=== PATIENT | female | born 1960 | race Caucasian/White ===

== ENCOUNTER → 2016-12-22 | Outpatient (CLI) | payer MEDICAID ==
--- NOTE | 2016-12-22 10:12 | CT ---
EXAMINATION TYPE: CT Enterography DATE OF EXAM: 12/22/2016 COMPARISON: NONE HISTORY: Blood in stool CT DLP: 1142.3 mGycm CONTRAST: CT scan of the abdomen and pelvis is performed without and with Oral Contrast and with IV Contrast, p atient injected with 100 mL of Omnipaque 350. FINDINGS: LUNG BASES-: No visible nodule. No infiltrate. LIVER/GB: There is evidence of hepatic steatosis. No calcified gallstones. No space occupying hepat ic lesion. Biliary tree is of normal caliber. PANCREAS: No inflammation. No distinct mass. SPLEEN: No splenic enlargement. No lesion seen. ADRENALS: No nodule. No thickening. KIDNEYS/BLADDER: No hydronephrosis. No nephrolithiasis. No disctinct renal mass. Urinary bladder g rossly unremarkable. BOWEL: There is less than ideal distention of distal small bowel loops limiting evaluation. Small bow el overall appears to be of normal caliber without focal wall thickening, extrinsic lesion or intrins ic mass. Mild sigmoid diverticulosis without diverticulitis. There is a normal appendix. GENITAL ORGANS: No gross abnormality. LYMPH NODES: No greater than 1cm abdominal or pelvic lymph nodes are appreciated. AORTA: No significant abnormality. OSSEOUS STRUCTURES: Mild degenerative narrowing L5-S1. OTHER: No significant additional abnormality is seen. IMPRESSION: 1. No significant abnormality of the small bowel to account for the patient's symptoms as noted porti ons of the study are suboptimal less than ideal distention particularly of the distal small bowel lo ops. 2. Mild sigmoid diverticulosis without diverticulitis. 3. Hepatic steatosis.
== END | disposition home or self-care (01) ==
LOC: RADCTMAIN 07:01
PROVIDERS: ATTEND Surgery
DX: K57.30 Diverticulosis of large intestine without perforation or abscess without bleeding (principal); K76.0 Fatty (change of) liver, not elsewhere classified
CPT/HCPCS: 74177; Q9967

== ENCOUNTER → 2017-05-05 | Outpatient (CLI) | payer MEDICAID ==
--- NOTE | 2017-05-05 12:18 | XR ---
EXAMINATION TYPE: XR wrist complete RT DATE OF EXAM: 05/05/2017 COMPARISON: NONE HISTORY: Pain and swelling TECHNIQUE: Four views submitted. FINDINGS: The osseous structures are intact. Mild narrowing of the radiocarpal joint. Mild osteopenic change. A nd there is no acute fracture or dislocation. There is diffuse soft tissue edema. IMPRESSION: 1. No acute osseous abnormality. There is diffuse soft tissue edema. Consider MRI or ultrasound for f urther evaluation.
== END | disposition home or self-care (01) ==
LOC: RADXRMAIN 11:22
PROVIDERS: ATTEND Radiology Diagnostic Radiology
DX: M79.89 Other specified soft tissue disorders (principal)

== ENCOUNTER → 2017-05-07 | Outpatient (CLI) | payer MEDICAID ==
--- NOTE | 2017-05-07 11:52 | MR ---
Right wrist MRI HISTORY: Pain and swelling Exam correlated to plain film 05/05/2017 multiplanar multisequence imaging through the right wrist The abductor pollicis longus tendon and extensor pollicis brevis tendon show abnormal increased signa l within the substance, there is some surrounding fluid, soft tissue edema. At the volar aspect of th e wrist at the level of the radiocarpal joint there is a cluster of grapes fluid signal present exten ding transversely approximately 13 mm x 5 mm in AP dimension by 18 mm craniocaudal which may represen t an adjacent ganglion cyst. Lunotriquetral, scapholunate, triangular fibrocartilage are intact. Bone marrow signal is maintained. Small amount of fluid signal is present distal to the ulna. IMPRESSION: Findings compatible with possible partial tears, tendinopathy of the abductor pollicis lo ngus and extensor pollicis brevis tendons. There may be a small ganglion cyst as described.
== END | disposition home or self-care (01) ==
LOC: RADMRIMAIN 09:16
PROVIDERS: ATTEND Radiology Diagnostic Radiology
DX: M77.8 Other enthesopathies, not elsewhere classified (principal)

== ENCOUNTER → 2018-04-22 | Outpatient (CLI) | payer MEDICAID ==
--- NOTE | 2018-04-23 11:15 | MM ---
Reason for exam: screening (asymptomatic). Last mammogram was performed 1 year and 3 months ago. History: Patient is postmenopausal. Physical Findings: A clinical breast exam by your physician is recommended on an annual basis and results should be correlated with mammographic findings. MG 3D Screening Mammo W/Cad Bilateral CC and MLO view(s) were taken. Prior study comparison: January 20, 2017, bilateral MG 3d screening mammo w/cad. April 09, 2015, bilateral MG 3d screening mammo w/cad. The breast tissue is heterogeneously dense. This may lower the sensitivity of mammography. No suspicious abnormality. No significant changes when compared with prior studies. ASSESSMENT: Negative, BI-RAD 1 RECOMMENDATION: Routine screening mammogram of both breasts in 1 year.
== END | disposition home or self-care (01) ==
LOC: RADMAMWWP 13:12
PROVIDERS: ATTEND Obstetrics & Gynecology Obstetrics
DX: Z12.31 Encounter for screening mammogram for malignant neoplasm of breast (principal)
CPT/HCPCS: 77063; 77067

== ENCOUNTER → 2019-09-12 | Outpatient (CLI) | payer MEDICAID ==
--- NOTE | 2019-09-12 08:10 | US ---
EXAMINATION TYPE: US pelvic complete DATE OF EXAM: 09/12/2019 COMPARISON: NONE CLINICAL HISTORY: N95.0 Postmenopausal bleeding. cramping with brown discharge 1 day 2-3 months ago, h/o unilateral oophorectomy, but pt does not remember which side TECHNIQUE: TV. Transvaginal sonographic images Date of LMP: 12+ yrs ago EXAM MEASUREMENTS: Uterus: 5.5 x 2.7 x 2.6 cm Endometrial Stripe: 0.2 cm Right Ovary: not seen Left Ovary: not seen 1. Uterus: Anteverted flexed to the right, wnl 2. Endometrium: wnl 3. Right Ovary: not seen due to bowel gas, atrophy or surgical removal 4. Left Ovary: not seen due to bowel gas, atrophy or surgical removal 5. Bilateral Adnexa: wnl 6. Posterior cul-de-sac: wnl Heterogeneous uterus without suspicious endometrial thickening. No free fluid in pelvis. No concernin g adnexal masses. IMPRESSION: Unremarkable study.
== END | disposition home or self-care (01) ==
LOC: RADUSWWP 07:01
DX: N95.0 Postmenopausal bleeding (principal)
CPT/HCPCS: 76830

== ENCOUNTER → 2020-02-29 | Outpatient (CLI) | payer MEDICAID ==
[2020-02-29 07:54] LABS: Basophils % (A) 1 %; Eosinophils # (A) 0.1 k/uL (0-0.7); Eosinophils % (A) 2 %; HCT 40.2 % (34.0-46.0); HGB 14.2 gm/dL (11.4-16.0); Lymphocytes % (A) 36 %; MCHC 35.3 g/dL (31.0-37.0); MCV 87.6 fL (80.0-100.0); Mean Platelet Volume 7.3; Monocytes # (A) 0.3 k/uL (0-1.0); Monocytes % (A) 5 %; Neutrophils % (A) 55 %; Platelet Count 208 k/uL (150-450); RBC 4.58 m/uL (3.80-5.40); RDW 13.2 % (11.5-15.5); WBC 5.5 k/uL (3.8-10.6)
[2020-02-29 14:37] LABS: African American GFR (CKD) 82.3 (60.0-200.0); Albumin 4.9 g/dL (3.80-4.90); Albumin/Globulin Ratio 2.23 (1.60-3.17); Anion Gap 11.9 mmol/L (4.00-12.00); BUN/Creat Ratio 15.56 Ratio (12.00-20.00); Calcium 10.1 mg/dL (8.7-10.3); Carbon Dioxide 28.1 mmol/L (21.6-31.8); Chol/HDL Ratio 5.15; Globulin 2.2 g/dL (1.6-3.3); LDL Cholesterol,Calculated 176.2 mg/dL (0.0-131.0); Potassium 4.8 mmol/L (3.5-5.5); Total Bilirubin 0.6 mg/dL (0.3-1.2); Total Protein 7.1 g/dL (6.2-8.2); VLDL Calculation 43.8 mg/dL (5.00-40.00)
[2020-02-29 16:39] LABS: Hemoglobin A1C 6.2 % (4.0-6.0)
== END | disposition home or self-care (01) ==
LOC: LABWHC1 07:13
PROVIDERS: ATTEND Family Medicine
DX: Z00.01 Encounter for general adult medical examination with abnormal findings (principal); E55.9 Vitamin D deficiency, unspecified; Z13.1 Encounter for screening for diabetes mellitus
CPT/HCPCS: 36415; 80053; 80061; 82306; 83036; 84443; 85025

== ENCOUNTER → 2020-07-13 | Outpatient (CLI) | payer MEDICAID ==
[2020-07-13 12:24] LABS: Basophils # (A) 0.03 X 10*3/uL (0.00-0.10); Basophils % (A) 0.5 %; Eosinophils # (A) 0.08 X 10*3/uL (0.04-0.35); Eosinophils % (A) 1.3 %; HCT 39.3 % (37.2-46.3); HGB 13.1 g/dL (12.0-15.0); Lymphocytes # (A) 2.71 X 10*3/uL (0.90-5.00); MCH 29.9 pg (27.0-32.0); MCHC 33.3 g/dL (32.0-37.0); MCV 89.7 fL (80.0-97.0); Mean Platelet Volume 10.9 fL (9.5-12.2); Monocytes # (A) 0.44 X 10*3/uL (0.20-1.00); Monocytes % (A) 7.1 %; Neutrophils # (A) 2.87 X 10*3/uL (1.80-7.70); Neutrophils % (A) 46.6 %; Platelet Count 228 X 10*3/uL (140-440); RBC 4.38 X 10*6/uL (4.10-5.20); RDW 12.4 % (11.5-14.5); WBC 6.16 X 10*3/uL (4.50-10.00)
[2020-07-14 04:13] LABS: African American GFR (CKD) 71.9 (60.0-200.0); Albumin 4.7 g/dL (3.80-4.90); Albumin/Globulin Ratio 1.88 (1.60-3.17); Anion Gap 12.9 mmol/L (4.00-12.00); Calcium 10.1 mg/dL (8.7-10.3); Carbon Dioxide 24.1 mmol/L (21.6-31.8); Chol/HDL Ratio 5.08; Globulin 2.5 g/dL (1.6-3.3); LDL Cholesterol,Calculated 173.8 mg/dL (0.0-131.0); Non-African American GFR(CKD) 62.1 (60.0-200.0); Total Bilirubin 0.6 mg/dL (0.3-1.2); Total Protein 7.2 g/dL (6.2-8.2); VLDL Calculation 34.2 mg/dL (5.00-40.00)
== END | disposition home or self-care (01) ==
LOC: LABWHC1 08:01
PROVIDERS: ATTEND Family Medicine
DX: E78.5 Hyperlipidemia, unspecified (principal)
CPT/HCPCS: 36415; 80053; 80061; 85025

== ENCOUNTER → 2020-09-25 | Outpatient (CLI) | payer MEDICAID ==
--- NOTE | 2020-09-26 11:45 | MM ---
Reason for exam: screening (asymptomatic). Last mammogram was performed 1 year and 1 month ago. History: Patient is postmenopausal. Physical Findings: A clinical breast exam by your physician is recommended on an annual basis and results should be correlated with mammographic findings. MG 3D Screening Mammo W/Cad Bilateral CC and MLO view(s) were taken. Prior study comparison: September 06, 2019, bilateral MG 3d screening mammo w/cad. April 22, 2018, bilateral MG 3d screening mammo w/cad. There are scattered fibroglandular densities. There are benign appearing round calcifications in the left breast. There is no discrete abnormality. ASSESSMENT: Benign, BI-RAD 2 RECOMMENDATION: Routine screening mammogram of both breasts in 1 year.
== END | disposition home or self-care (01) ==
LOC: RADMAMWWP 11:55
PROVIDERS: ATTEND Obstetrics & Gynecology Obstetrics
DX: Z12.31 Encounter for screening mammogram for malignant neoplasm of breast (principal)
CPT/HCPCS: 77063; 77067

== ENCOUNTER → 2021-05-23 | Outpatient (CLI) | payer MEDICAID ==
[2021-05-23 10:52] LABS: ALT 12 U/L (8-44); AST 23 U/L (13-35); African American GFR (CKD) 81.1 (60.0-200.0); Albumin 4.8 g/dL (3.8-4.9); Alkaline Phosphatase 53 U/L (41-126); BUN/Creat Ratio 21.11 Ratio (12.00-20.00); Calcium 9.9 mg/dL (8.7-10.3); Carbon Dioxide 25.4 mmol/L (20.0-27.5); Chloride 105 mmol/L (96-109); Chol/HDL Ratio 3.05 Ratio; Globulin 2.4 g/dL (1.6-3.3); Glucose 102 mg/dL (70-110); Sodium 141 mmol/L (135-145); Total Protein 7.2 g/dL (6.2-8.2)
== END | disposition home or self-care (01) ==
LOC: LABWHC1 07:20
PROVIDERS: ATTEND Nurse Practitioner Family
DX: E11.9 Type 2 diabetes mellitus without complications (principal)
CPT/HCPCS: 36415; 80053; 80061; 83036

== ENCOUNTER → 2021-08-30 | Outpatient (CLI) | payer MEDICAID ==
[2021-08-30 10:51] LABS: Basophils # (A) 0.02 X 10*3/uL (0.00-0.10); Basophils % (A) 0.3 %; Eosinophils # (A) 0.07 X 10*3/uL (0.04-0.35); Eosinophils % (A) 1.1 %; HCT 38.1 % (37.2-46.3); HGB 12.5 g/dL (12.0-15.0); Immature Grans, Automated 0.6 %; Lymphocytes # (A) 2.66 X 10*3/uL (0.90-5.00); Lymphocytes % (A) 42.1 %; MCH 29.6 pg (27.0-32.0); MCHC 32.8 g/dL (32.0-37.0); MCV 90.3 fL (80.0-97.0); Mean Platelet Volume 10.5 fL (9.5-12.2); Monocytes # (A) 0.53 X 10*3/uL (0.20-1.00); Monocytes % (A) 8.4 %; NRBC Per 100 WBC 0 /100 WBCS (0.0-0.0); Neutrophils % (A) 47.5 %; Platelet Count 214 X 10*3/uL (140-440); RBC 4.22 X 10*6/uL (4.10-5.20); RDW 12.7 % (11.5-14.5); WBC 6.32 X 10*3/uL (4.50-10.00)
[2021-08-30 11:00] LABS: ALT 18 U/L (8-44); AST 28 U/L (13-35); African American GFR (CKD) 83.7 (60.0-200.0); Albumin 4.8 g/dL (3.8-4.9); Alkaline Phosphatase 51 U/L (41-126); BUN/Creat Ratio 19.27 Ratio (12.00-20.00); Blood Urea Nitrogen 16.9 mg/dL (9.0-27.0); Calcium 9.7 mg/dL (8.7-10.3); Carbon Dioxide 26.7 mmol/L (20.0-27.5); Chloride 105 mmol/L (96-109); Chol/HDL Ratio 2.63 Ratio; Globulin 2.4 g/dL (1.6-3.3); Glucose 105 mg/dL (70-110); LDL Cholesterol,Calculated 71.2 mg/dL (0.0-131.0); Non-African American GFR(CKD) 72.2 (60.0-200.0); Potassium 4.4 mmol/L (3.5-5.5); Sodium 141 mmol/L (135-145); Total Protein 7.1 g/dL (6.2-8.2)
== END | disposition home or self-care (01) ==
LOC: LABWHC1 07:13
PROVIDERS: ATTEND Family Medicine
DX: E11.9 Type 2 diabetes mellitus without complications (principal)
CPT/HCPCS: 36415; 80053; 80061; 83036; 85025

== ENCOUNTER → 2021-11-15 | Outpatient (CLI) | payer MEDICAID ==
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
== END | disposition home or self-care (01) ==
LOC: RADXRMAIN 10:52
PROVIDERS: ATTEND Radiology Diagnostic Radiology
DX: R05.9 Cough, unspecified (principal)
CPT/HCPCS: 71046

== ENCOUNTER 2021-12-04 12:24 | Emergency (ER) | payer OTHER, MEDICAID ==
[2021-12-04 12:30] VITALS: BP 167/90; PULSE 85; RESP 16; TEMP 98
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
== END 2021-12-04 14:20 | disposition home or self-care (01) ==
LOC: EC 12:24
DX: V89.2XXA Person injured in unspecified motor-vehicle accident, traffic, initial encounter (principal)
CPT/HCPCS: 70450; 71046; 72125; 99285

== ENCOUNTER → 2021-12-10 | Outpatient (CLI) | payer MEDICAID ==
--- NOTE | 2021-12-11 08:29 | MM ---
Reason for Exam: Screening (asymptomatic). Last mammogram was performed 1 year(s) and 3 month(s) ago. Patient History: Menarche at age 14. First Full-Term at age 23. Right ovary removed at age 30. Postmenopausal. Risk Values: Anabella 5 year model risk: 1.2%. NCI Lifetime model risk: 6.7%. Prior Study Comparison: 04/22/2018 Bilateral Screening Mammogram, [facility]. 09/06/2019 Bilateral Screening Mammogram, [facility]. 09/25/2020 Bilateral Screening Mammogram, [facility]. Tissue Density: There are scattered fibroglandular densities. Findings: Analyzed By CAD. There is no suspicious group of microcalcifications or new suspicious mass in either breast. Overall Assessment: Negative, BI-RAD 1 Management: Screening Mammogram of both breasts in 1 year. A clinical breast exam by your physician is recommended on an annual basis and results should be correlated with mammographic findings. Electronically signed and approved by: Tomy Virgen M.D. Radiologis
== END | disposition home or self-care (01) ==
LOC: RADMAMWWP 16:56
PROVIDERS: ATTEND Obstetrics & Gynecology Obstetrics
DX: Z12.31 Encounter for screening mammogram for malignant neoplasm of breast (principal); Z78.0 Asymptomatic menopausal state; Z90.721 Acquired absence of ovaries, unilateral
CPT/HCPCS: 77063; 77067

== ENCOUNTER → 2021-12-14 | Outpatient (CLI) | payer MEDICAID ==
[2021-12-15 03:54] LABS: Basophils % (A) 1 %; Eosinophils # (A) 0.1 k/uL (0-0.7); Eosinophils % (A) 1 %; HCT 41.8 % (34.0-46.0); HGB 14.2 gm/dL (11.4-16.0); Lymphocytes # (A) 2.5 k/uL (1.0-4.8); Lymphocytes % (A) 39 %; MCH 30.7 pg (25.0-35.0); MCV 90.3 fL (80.0-100.0); Mean Platelet Volume 10.3; Monocytes # (A) 0.4 k/uL (0-1.0); Monocytes % (A) 6 %; Neutrophils # (A) 3.4 k/uL (1.3-7.7); Neutrophils % (A) 53 %; Platelet Count 221 k/uL (150-450); RBC 4.63 m/uL (3.80-5.40); RDW 12.8 % (11.5-15.5); WBC 6.5 k/uL (3.8-10.6)
[2021-12-15 09:49] LABS: ALT 16 U/L (8-44); AST 24 U/L (13-35); African American GFR (CKD) 78.4 (60.0-200.0); Albumin 4.9 g/dL (3.8-4.9); Albumin/Globulin Ratio 1.87 (1.60-3.17); Alkaline Phosphatase 51 U/L (41-126); BUN/Creat Ratio 20.52 Ratio (12.00-20.00); Carbon Dioxide 27.9 mmol/L (20.0-27.5); Chloride 102 mmol/L (96-109); Chol/HDL Ratio 3.25 Ratio; Globulin 2.6 g/dL (1.6-3.3); Glucose 100 mg/dL (70-110); LDL Cholesterol,Calculated 106.3 mg/dL (0.0-131.0); Non-African American GFR(CKD) 67.6 (60.0-200.0); Potassium 4.5 mmol/L (3.5-5.5); Sodium 141 mmol/L (135-145); Total Protein 7.5 g/dL (6.2-8.2)
== END | disposition home or self-care (01) ==
LOC: LABWHC1 11:59
PROVIDERS: ATTEND Family Medicine
DX: Z00.01 Encounter for general adult medical examination with abnormal findings (principal); E11.9 Type 2 diabetes mellitus without complications; E55.9 Vitamin D deficiency, unspecified
CPT/HCPCS: 36415; 80053; 80061; 82306; 83036; 84439; 84443; 85025

== ENCOUNTER → 2021-12-31 | Outpatient (CLI) | payer MEDICAID ==
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
== END | disposition home or self-care (01) ==
LOC: RADMRIMAIN 07:30
PROVIDERS: ATTEND Nurse Practitioner Family
DX: M19.012 Primary osteoarthritis, left shoulder (principal); M25.512 Pain in left shoulder; G31.1 Senile degeneration of brain, not elsewhere classified; G43.909 Migraine, unspecified, not intractable, without status migrainosus; I67.82 Cerebral ischemia
CPT/HCPCS: 70551

== ENCOUNTER → 2022-01-27 | Outpatient (CLI) | payer MEDICAID ==
[2022-01-27 14:28] LABS: Basophils # (A) 0.04 X 10*3/uL (0.00-0.10); Basophils % (A) 0.5 %; Eosinophils # (A) 0.04 X 10*3/uL (0.04-0.35); Eosinophils % (A) 0.5 %; HGB 14.1 g/dL (12.0-15.0); Immature Grans, Automated 0.2 %; Lymphocytes % (A) 38.5 %; MCH 29.9 pg (27.0-32.0); MCHC 32.8 g/dL (32.0-37.0); MCV 91.3 fL (80.0-97.0); Mean Platelet Volume 10.8 fL (9.5-12.2); Monocytes # (A) 0.47 X 10*3/uL (0.20-1.00); Monocytes % (A) 5.8 %; NRBC Per 100 WBC 0 /100 WBCS (0.0-0.0); Neutrophils # (A) 4.38 X 10*3/uL (1.80-7.70); Neutrophils % (A) 54.5 %; Platelet Count 235 X 10*3/uL (140-440); RBC 4.71 X 10*6/uL (4.10-5.20); RDW 12.7 % (11.5-14.5); WBC 8.05 X 10*3/uL (4.50-10.00)
[2022-01-27 15:09] LABS: Anion Gap 12.6 mmol/L (10.00-18.00); BUN/Creat Ratio 20.74 Ratio (12.00-20.00); Blood Urea Nitrogen 18.5 mg/dL (9.0-27.0); Carbon Dioxide 24.7 mmol/L (20.0-27.5); Non-African American GFR(CKD) 70.8 (60.0-200.0); Potassium 4.7 mmol/L (3.5-5.5)
== END | disposition home or self-care (01) ==
LOC: LABPAT 07:41
PROVIDERS: ATTEND Orthopaedic Surgery
DX: S43.431A Superior glenoid labrum lesion of right shoulder, initial encounter (principal)
CPT/HCPCS: 80048; 85025; 93005

== ENCOUNTER 2022-02-11 05:57 | Day surgery (SDC) | payer MEDICAID, OTHER ==
[2022-02-04 15:04] VITALS: BMI 25.4
--- NOTE | 2022-02-10 09:42 | P.HPOR ---
History of Present Illness H&P Date: 02/10/22 Chief Complaint: Left shoulder pain Patient is a 61-year-old female who presents after injury on 01/10/2022 with increasing pain, stiffness, and weakness involving the left shoulder. She notes pain with overhead activity and at night. She's tried therapy in addition to medications without much relief. She notes daily symptoms that aren't improving. Review of Systems As per HPI Past Medical History Past Medical History: Diabetes Mellitus, Hyperlipidemia, Hypertension Additional Past Medical History / Comment(s): work injury to lt shoulder-limited rom, prediabetes, seasonal allergies,Covid infection Nov 2021 History of Any Multi-Drug Resistant Organisms: None Reported Additional Past Surgical History / Comment(s): oophorectomy,d&c Past Anesthesia/Blood Transfusion Reactions: Postoperative Nausea & Vomiting (PONV) Additional Past Anesthesia/Blood Transfusion Reaction / Comment(s): had a hard time waking up,no problems with prior blood transfusions 34 yrs ago Smoking Status: Never smoker - Past Family History Mother Family Medical History: No Reported History Father Family Medical History: Myocardial Infarction ([place]) Medications and Allergies Home Medications Medication Instructions Recorded Confirmed Type Acetaminophen Tab [Tylenol Tab] 500 mg PO Q6H PRN 02/04/22 02/04/22 History Losartan [Cozaar] 50 mg PO HS 02/04/22 02/04/22 History Meloxicam [Mobic] 15 mg PO DAILY 02/04/22 02/04/22 History Semaglutide [Ozempic] 0.25 mg SQ Q7D 02/04/22 02/04/22 History Simvastatin 10 mg PO Q2D 02/04/22 02/04/22 History metFORMIN HCL [Glucophage] 500 mg PO HS 02/04/22 02/04/22 History methocarbamoL [Methocarbamol] 750 mg PO Q8H PRN 02/04/22 02/04/22 History Allergies Allergy/AdvReac Type Severity Reaction Status Date / Time amoxicillin Allergy Rash/Hives Unverified 02/04/22 14:40 hydrocodone AdvReac headache,na Verified 02/04/22 15:15 usea/vomiti ng Physical Examination - Shoulder left Tenderness with palpation: anterior Pain: with forward flexion ROM: abduction: 80 degrees ROM: forward flexion: 100 degrees (100 actively, 115 passively) ROM: internal rotation: lower lumbar ROM: external rotation: 40 degrees Strength: abduction: 4/5 Strength: forward flexion: 4/5 Strength: external rotation: 4/5 Tests: internal impingement tests: positive Results The patient is a well-developed well-nourished female approximately 5 foot tall 150 pounds of these mesomorphic habitus. HEENT exam is nonfocal, neck is supple. Her distal neurovascular exam appears intact in the left upper extremity. - Diagnostic results Shoulder MRI: image reviewed (MRI of the left shoulder shows evidence of rotator cuff tendinitis along with a superior labral tear and partial tear of the proximal biceps.) Assessment and Plan Assessment: Left rotator cuff tendinitis/impingement Left superior labral tear/proximal biceps partial tear Left shoulder adhesive capsulitis/synovitis Plan: I talked to the patient at length regarding her condition along with treatment options. She remains quite symptomatic despite attempted conservative measures. After thorough discussion shaft proceed with surgery. We will plan to proceed with arthroscopic evaluation of the left shoulder with probable subacromial decompression, possible rotator cuff debridement, possible biceps tenotomy in addition to superior labral debridement. We'll potentially perform a synovectomy and manipulation under anesthesia as well. Risks and benefits were discussed at length in layman's terms. We will likely perform that as an outpatient procedure.
[2022-02-11] MEDS ORDERED: LACTATED RINGERS 1,000 ML IV ONE (07:00)
[2022-02-11 07:02] LABS: Glucose,Whole Blood 89 mg/dL (70-110)
[2022-02-11] MEDS ORDERED: ONDANSETRON 4 MG/2 ML VIAL ONE (07:09)
[2022-02-11] MEDS ORDERED: ONDANSETRON 4 MG/2 ML VIAL IVP ONE ×2 (07:20→09:27)
[2022-02-11] MEDS ORDERED: SCOPOLAMINE 1 MG/72 HR PATCH TRANSDERM ONE (07:20)
[2022-02-11] MEDS ORDERED: DEXAMETHASONE SOD PHOSPHATE 4 MG/ML 1 ML VIAL IVP ONE (07:20)
[2022-02-11] MEDS ORDERED: MIDAZOLAM 2 MG/2 ML VIAL IVP ONE (07:31)
[2022-02-11] MEDS ORDERED: PROPOFOL 10 MG/ML 20 ML VIAL IV ONE (07:40)
[2022-02-11] MEDS ORDERED: SUCCINYLCHOLINE CHLORIDE 200 MG/10 ML VIAL IV ONE (07:40)
[2022-02-11] MEDS ORDERED: PHENYLEPHRINE-0.9% NACL SYG 1,000 MCG/10 ML SYRINGE ONE (07:40)
[2022-02-11] MEDS ORDERED: ROPIVACAINE 5 MG/ML 30 ML VIAL ONE (07:40)
[2022-02-11] MEDS ORDERED: DEXAMETHASONE SOD PHOSPHATE 4 MG/ML 1 ML VIAL ONE (07:40)
[2022-02-11] MEDS ORDERED: LIDOCAINE 2% INJ 20 MG/ML (2 ML VIAL) ONE (07:40)
[2022-02-11] MEDS ORDERED: fentaNYL (PF) 50 MCG/ML 2 ML AMP ONE (07:40)
[2022-02-11] MEDS ORDERED: ePHEDrine 50 MG/ML 1 ML VIAL ONE (07:40)
[2022-02-11] MEDS ORDERED: EPINEPHrine (PF) 1 ML in SODIUM CHLORIDE 0.9% IRRIGATIO 3,000 ML IRRIGATION ONE ×8 (07:45)
--- NOTE | 2022-02-11 08:45 | P.OP ---
Date of Procedure: 02/11/22 Preoperative Diagnosis: Left rotator cuff strain/adhesive capsulitis/superior labral tear Postoperative Diagnosis: Same in addition to left shoulder synovitis, type I superior labral tear Procedure(s) Performed: Left shoulder arthroscopic subacromial decompression/superior labral debridement/synovectomy/manipulation under anesthesia Anesthesia: sofia EPPERSON Surgeon: Emilio Rizo Hopper Feeder #1: Parish Turner Estimated Blood Loss (ml): 10 Pathology: none sent Condition: stable Disposition: PACU Indications for Procedure: The patient is a 61-year-old female who presents after a work recent work injury with progressive left shoulder pain and stiffness despite conservative measures. A discussion of the risks and benefits of operative intervention versus continued conservative measures was made with patient she opted to proceed with surgery. Operative risks to include infection, neurovascular injury, development of blood clots, possible recurrence of stiffness, and possible need for subscap procedures was discussed. Informed consent was obtained. Operative Findings: As below Description of Procedure: The patient was brought to the operating room, and after induction of general anesthesia was placed in a beachchair position. A preoperative interscalene block was placed for postoperative analgesia. I examined the left shoulder. There was significant block to passive motion. Gentle manipulation was then performed first with the arm at the side obtaining full external rotation. Moderate adhesions were encountered. I then obtained full forward elevation. Again there were moderate adhesions. The left upper extremity was prepped and draped in normal fashion. The bony outlines the acromion, distal clavicle, and coracoid process were outlined with a skin marker. The glenohumeral joint was inflated with 50 mL of saline utilizing a spinal needle from posterior approach. A posterior portal was made through a 5 mm skin incision 1 cm medial and inferior to the posterior lateral border time. A blunt trocar was used to easily into the joint. Diagnostic arthroscopy was performed. An anterior portal was made just lateral to the coracoid process entering the joint above th e subscapularis tendon. The subscapularis tendon appeared to be intact. There was significant synovitis involving the rotator interval and the anterior aspect the glenohumeral joint. This was debrided with a motorized shaver. Anterior labrum was intact. The inferior recess was inspected. The posterior labrum was intact. A type I superior labral tear was identified. This was debrided back to a stable base. The remaining biceps anchor appeared to be stable and intact. The intra-articular portion of the biceps appeared to be intact. On inspection the rotator cuff, a partial thickness tear involving the anterior aspect of the supraspinatus was noted. This was debrided back to stable base with a motorized shaver. This involved approximately 10% of the tendon thickness. The arthro scope was placed into the subacromial space. A lateral portal was made 2 centimeters inferior to the anterior lateral border of the acromion. Significant bursitis was noted and subacromial space. This was debrided with a motorized shaver. The soft tissue on the undersurface of the acromion was debrided with a motorized shaver and electrocautery clearly defining the anterior medial and lateral borders as well as the distal clavicle. An anterior inferior acromioplasty was performed with a motorized karen starting anterolateral, then extending this posteriorly, then extending this medially. I converted to a flat acromion and this was verified in the posterior and lateral viewing portals. The rotator cuff appeared to be intact on the bursal surface. The arthroscope was then removed. The portals were closed with simple 3-0 nylon sutures. A sterile dressing was applied in addition to a sling. The patient was then awoken from general anesthesia and transferred to recovery room in good condition. Blood loss was estimated at 10 mL. No complications were incurred. Sponge and needle counts were correct in the case. Parish IBRAHIM assisted and the major components of the case to include arm positioning, arthroscopy/decompression/labral debridement.
[2022-02-11 08:55] VITALS: TEMP 97.4
--- NOTE | 2022-02-11 09:13 | P.ANPRN ---
Procedure Note - Anesthesia - Nerve Block Performed Left Interscalene Single Time Out Performed: Yes Date of Procedure: 02/11/22 Procedure Start Time: 07:30 Procedure Stop Time: 07:35 Location of Patient: PreOp Indication: Acute Post-Operative Pain, Dx/Pain Location (Left shoulder) Specifically requested for management of pain by DrChastity: Emilio Rizo Sedation Type: Sedate with meaningful contact maintained Preparation: Sterile Prep Position: Supine Catheter: None Needle Types: Pajunk Needle Gauge: 21 Ultrasound used to visualize needle placement: Yes Ultrasound used to observe medication spread: Yes Injectate: 0.5% Ropivacaine (see comment for volume) (30 cc + 4mg of decadron) Blood Aspirated: No Pain Paresthesia on Injection Noted: No Resistance on Injection: Normal Image Stored and Saved: Yes Events: Uneventful and Well Tolerated
[2022-02-11 09:20] VITALS: RESP 16
[2022-02-11] MEDS ORDERED: DEXAMETHASONE SOD PHOSPHATE 4 MG/ML 1 ML VIAL IV ONE (09:27)
[2022-02-11] MEDS ORDERED: LACTATED RINGERS 1,000 ML IV SCH (09:27)
[2022-02-11] MEDS ORDERED: HYDROmorphone 0.5 MG/0.5 ML SYRINGE IVP PRN (09:27)
[2022-02-11 09:50] VITALS: BP 132/84; PULSE 74
== END 2022-02-11 10:26 | disposition home or self-care (01) ==
LOC: OR 05:57
PROVIDERS: ATTEND Orthopaedic Surgery
DX: S46.012A Strain of muscle(s) and tendon(s) of the rotator cuff of left shoulder, initial encounter (principal); G89.18 Other acute postprocedural pain; S43.432A Superior glenoid labrum lesion of left shoulder, initial encounter; M75.42 Impingement syndrome of left shoulder; M75.02 Adhesive capsulitis of left shoulder; E11.9 Type 2 diabetes mellitus without complications; E78.5 Hyperlipidemia, unspecified; I10 Essential (primary) hypertension; Z79.84 Long term (current) use of oral hypoglycemic drugs; Z79.899 Other long term (current) drug therapy; Z79.1 Long term (current) use of non-steroidal anti-inflammatories (NSAID); Z88.0 Allergy status to penicillin; Z88.5 Allergy status to narcotic agent; X58.XXXA Exposure to other specified factors, initial encounter; Z82.49 Family history of ischemic heart disease and other diseases of the circulatory system; Z90.721 Acquired absence of ovaries, unilateral
CPT/HCPCS: 64415; 76942; 29823; 29826; J2250; J0330; J1100; J2405; J0690; J0171; J3010; J2795; J2370; J2704; J2001

== ENCOUNTER → 2022-05-30 | Outpatient (CLI) | payer OTHER, MEDICAID ==
[2022-05-30 15:33] LABS: Basophils # (A) 0.03 X 10*3/uL (0.00-0.10); Basophils % (A) 0.5 %; Eosinophils # (A) 0.05 X 10*3/uL (0.04-0.35); Eosinophils % (A) 0.8 %; HCT 38.2 % (37.2-46.3); Immature Grans, Automated 0.5 %; Lymphocytes # (A) 2.53 X 10*3/uL (0.90-5.00); Lymphocytes % (A) 38.9 %; MCH 30.4 pg (27.0-32.0); MCV 89.3 fL (80.0-97.0); Mean Platelet Volume 10.4 fL (9.5-12.2); Monocytes # (A) 0.41 X 10*3/uL (0.20-1.00); Monocytes % (A) 6.3 %; NRBC Per 100 WBC 0 /100 WBCS (0.0-0.0); Neutrophils # (A) 3.46 X 10*3/uL (1.80-7.70); Platelet Count 237 X 10*3/uL (140-440); RBC 4.28 X 10*6/uL (4.10-5.20); RDW 12.6 % (11.5-14.5); WBC 6.51 X 10*3/uL (4.50-10.00)
[2022-05-30 15:45] LABS: ALT 10 U/L (8-44); AST 18 U/L (13-35); African American GFR (CKD) 89.5 (60.0-200.0); Albumin 4.9 g/dL (3.8-4.9); Albumin/Globulin Ratio 2.19 (1.60-3.17); Alkaline Phosphatase 52 U/L (41-126); BUN/Creat Ratio 19.76 Ratio (12.00-20.00); Blood Urea Nitrogen 16.3 mg/dL (9.0-27.0); Carbon Dioxide 25.7 mmol/L (20.0-27.5); Chloride 104 mmol/L (96-109); Chol/HDL Ratio 2.67 Ratio; Globulin 2.3 g/dL (1.6-3.3); Glucose 87 mg/dL (70-110); LDL Cholesterol,Calculated 81.1 mg/dL (0.0-131.0); Non-African American GFR(CKD) 77.2 (60.0-200.0); Potassium 4.8 mmol/L (3.5-5.5); Sodium 142 mmol/L (135-145); Total Protein 7.2 g/dL (6.2-8.2); VLDL Calculation 18.96 mg/dL (5.00-40.00)
== END | disposition home or self-care (01) ==
LOC: LABWHC1 08:23
PROVIDERS: ATTEND Nurse Practitioner Family
DX: E78.5 Hyperlipidemia, unspecified (principal); E11.69 Type 2 diabetes mellitus with other specified complication
CPT/HCPCS: 36415; 80053; 80061; 83036; 85025

== ENCOUNTER → 2022-12-16 | Outpatient (CLI) | payer MEDICAID ==
[2022-12-16 15:52] LABS: Chol/HDL Ratio 2.51 Ratio; LDL Cholesterol,Calculated 92.8 mg/dL (0.0-131.0); VLDL Calculation 17.18 mg/dL (5.00-40.00)
[2022-12-16 15:53] LABS: ALT 18 U/L (8-44); AST 23 U/L (13-35); Albumin/Globulin Ratio 2.17 Ratio (1.60-3.17); Alkaline Phosphatase 59 U/L (41-126); BUN/Creat Ratio 19.33 Ratio (12.00-20.00); Blood Urea Nitrogen 17.4 mg/dL (9.0-27.0); Calcium 10.7 mg/dL (8.7-10.3); Carbon Dioxide 27.8 mmol/L (21.6-31.8); Chloride 106 mmol/L (96-109); Globulin 2.3 d/dL (1.6-3.3); Glucose 90 mg/dL (70-110); Potassium 5.6 mmol/L (3.5-5.5); Sodium 144 mmol/L (135-145); Total Bilirubin 0.6 mg/dL (0.3-1.2); Total Protein 7.3 d/dL (6.2-8.2)
[2022-12-16 16:01] LABS: Basophils # (A) 0.02 X 10*3/uL (0.00-0.10); Basophils % (A) 0.3 %; Eosinophils # (A) 0.06 X 10*3/uL (0.04-0.35); Eosinophils % (A) 0.8 %; HCT 41.5 % (37.2-46.3); HGB 13.6 d/dL (12.0-15.0); Lymphocytes # (A) 2.82 X 10*3/uL (0.90-5.00); Lymphocytes % (A) 37.4 %; MCH 30.2 pg (27.0-32.0); MCHC 32.8 d/dL (32.0-37.0); Mean Platelet Volume 10.3 FL (9.5-12.2); Monocytes # (A) 0.49 X 10*3/uL (0.20-1.00); Monocytes % (A) 6.5 %; NRBC Per 100 WBC 0 X 10*3/uL (0.00-0.01); Neutrophils # (A) 4.13 X 10*3/uL (1.80-7.70); Neutrophils % (A) 54.7 %; Platelet Count 244 X 10*3/uL (140-440); RBC 4.51 X 10*6/uL (4.10-5.20); RDW 12.8 % (11.5-14.5); WBC 7.54 X 10*3/uL (4.50-10.00)
== END | disposition home or self-care (01) ==
LOC: LABWHC1 08:10
PROVIDERS: ATTEND Family Medicine
DX: E11.69 Type 2 diabetes mellitus with other specified complication (principal); E78.5 Hyperlipidemia, unspecified
CPT/HCPCS: 36415; 80053; 80061; 83036; 85025

== ENCOUNTER → 2023-05-20 | Outpatient (CLI) | payer MEDICAID ==
--- NOTE | 2023-05-21 10:52 | MM ---
Reason for Exam: Screening (asymptomatic). Last mammogram was performed 1 year(s) and 5 month(s) ago. Patient History: Menarche at age 14. First Full-Term at age 23. Right ovary removed at age 30. Postmenopausal. Maternal aunt had breast cancer. Risk Values: Anabella 5 year model risk: 1.3%. NCI Lifetime model risk: 6.4%. Prior Study Comparison: 09/06/2019 Bilateral Screening Mammogram, [facility]. 09/25/2020 Bilateral Screening Mammogram, [facility]. 12/10/2021 Bilateral MG 3D screening mammo w/cad, [facility]. Tissue Density: The breasts are heterogeneously dense, which may obscure small masses. Findings: Analyzed By CAD. There is no suspicious group of microcalcifications or new suspicious mass in either breast. Fine appearing calcification. Overall Assessment: Benign, BI-RAD 2 Management: Screening Mammogram of both breasts in 1 year. . Patient should continue monthly self-breast exams. A clinical breast exam by your physician is recommended on an annual basis. This exam should not preclude additional follow-up of suspicious palpable abnormalities. Note on Anabella scores and lifetime risk: 1. A Anabella score greater than 3% is considered moderate risk. If this is the case, consider specialist referral to assess eligibility for a risk reducing agent. 2. If overall lifetime risk for the development of breast cancer is 20% or higher, the patient may qualify for future screening with alternating mammogram and breast MRI. Electronically signed and approved by: Murphy Alvarez M.D. Radiologis
== END | disposition home or self-care (01) ==
LOC: RADMAMWWP 13:12
PROVIDERS: ATTEND Family Medicine
DX: Z12.31 Encounter for screening mammogram for malignant neoplasm of breast (principal); Z78.0 Asymptomatic menopausal state; Z80.3 Family history of malignant neoplasm of breast
CPT/HCPCS: 77063; 77067

== ENCOUNTER → 2023-10-16 | Outpatient (CLI) | payer MEDICAID ==
[2023-10-16 10:59] LABS: Basophils # (A) 0.04 X 10*3/uL (0.00-0.10); Basophils % (A) 0.5 %; Eosinophils # (A) 0.05 X 10*3/uL (0.04-0.35); Eosinophils % (A) 0.6 %; HCT 38.8 % (37.2-46.3); HGB 13.2 g/dL (12.0-15.0); Lymphocytes # (A) 2.66 X 10*3/uL (0.90-5.00); Lymphocytes % (A) 31.2 %; MCH 30.6 pg (27.0-32.0); MCV 89.8 FL (80.0-97.0); Mean Platelet Volume 10.3 FL (9.5-12.2); Monocytes # (A) 0.56 X 10*3/uL (0.20-1.00); Monocytes % (A) 6.6 %; NRBC Per 100 WBC 0 X 10*3/uL (0.00-0.01); Neutrophils % (A) 60.9 %; Platelet Count 233 X 10*3/uL (140-440); RBC 4.32 X 10*6/uL (4.10-5.20); RDW 12.6 % (11.5-14.5); WBC 8.53 X 10*3/uL (4.50-10.00)
[2023-10-16 11:12] LABS: ALT 25 U/L (8-44); AST 25 U/L (13-35); Albumin/Globulin Ratio 2.27 Ratio (1.60-3.17); Alkaline Phosphatase 55 U/L (41-126); Blood Urea Nitrogen 21.9 mg/dL (9.0-27.0); Calcium 9.7 mg/dL (8.7-10.3); Chloride 105 mmol/L (96-109); Chol/HDL Ratio 2.67 Ratio; Globulin 2.2 g/dL (1.6-3.3); Glucose 93 mg/dL (70-110); LDL Cholesterol,Calculated 85.8 mg/dL (0.0-131.0); Potassium 4.9 mmol/L (3.5-5.5); Sodium 141 mmol/L (135-145); Total Bilirubin 0.4 mg/dL (0.3-1.2); Total Protein 7.2 g/dL (6.2-8.2); VLDL Calculation 19.94 mg/dL (5.00-40.00)
== END | disposition home or self-care (01) ==
LOC: LABWHC1 07:10
PROVIDERS: ATTEND Family Medicine
DX: E78.5 Hyperlipidemia, unspecified (principal)
CPT/HCPCS: 36415; 80053; 80061; 85025

== ENCOUNTER → 2024-01-21 | Outpatient (CLI) | payer MEDICAID ==
[2024-01-21 10:34] LABS: Basophils # (A) 0.04 X 10*3/uL (0.00-0.10); Basophils % (A) 0.5 %; Eosinophils # (A) 0.05 X 10*3/uL (0.04-0.35); Eosinophils % (A) 0.7 %; HGB 13.2 g/dL (12.0-15.0); Lymphocytes # (A) 2.69 X 10*3/uL (0.90-5.00); Lymphocytes % (A) 35.9 %; MCH 29.9 pg (27.0-32.0); MCHC 33.8 g/dL (32.0-37.0); MCV 88.2 FL (80.0-97.0); Mean Platelet Volume 10.6 FL (9.5-12.2); Monocytes # (A) 0.54 X 10*3/uL (0.20-1.00); Monocytes % (A) 7.2 %; NRBC Per 100 WBC 0 X 10*3/uL (0.00-0.01); Neutrophils # (A) 4.15 X 10*3/uL (1.80-7.70); Neutrophils % (A) 55.4 %; Platelet Count 227 X 10*3/uL (140-440); RBC 4.42 X 10*6/uL (4.10-5.20); RDW 12.5 % (11.5-14.5); WBC 7.49 X 10*3/uL (4.50-10.00)
[2024-01-21 10:44] LABS: Blood Urea Nitrogen 16.4 mg/dL (9.0-27.0); Carbon Dioxide 25.2 mmol/L (21.6-31.8); Chloride 103 mmol/L (96-109); Chol/HDL Ratio 2.78 Ratio; Glucose 88 mg/dL (70-110); LDL Cholesterol,Calculated 93.6 mg/dL (0.0-131.0); Potassium 4.6 mmol/L (3.5-5.5); Sodium 138 mmol/L (135-145)
[2024-01-21 10:45] LABS: ALT 23 U/L (8-44); AST 29 U/L (13-35); Albumin 4.8 g/dL (3.8-4.9); Alkaline Phosphatase 59 U/L (41-126); Calcium 9.9 mg/dL (8.7-10.3); Globulin 2.4 g/dL (1.6-3.3); Total Bilirubin 0.5 mg/dL (0.3-1.2); Total Protein 7.2 g/dL (6.2-8.2)
== END | disposition home or self-care (01) ==
LOC: LABWHC1 07:06
PROVIDERS: ATTEND Family Medicine
DX: E11.9 Type 2 diabetes mellitus without complications (principal); E78.5 Hyperlipidemia, unspecified
CPT/HCPCS: 36415; 80053; 80061; 83036; 83525; 85025

== ENCOUNTER → 2024-04-13 | Outpatient (CLI) | payer MEDICAID ==
--- NOTE | 2024-04-13 13:43 | US ---
EXAMINATION TYPE: US thyroid st tissue head/neck DATE OF EXAM: 04/13/2024 COMPARISON: NONE CLINICAL INDICATION: Female, 64 years old with history of E04.9 NONTOXIC GOITER; Goiter TECHNIQUE: Grayscale and color Doppler imaging of the thyroid gland. FINDINGS: GLAND SIZE: Right Lobe: 4.9 x 1.8 x 1.4 cm Overall Parenchyma: homogeneous Left Lobe: 4.7 x 1.4 x 1.4 cm Overall Parenchyma: homogeneous Isthmus Thickness: .5 cm NODULES RIGHT: # of nodules measured on right: Tiny subcentimeter anechoic area 2mm. TR 1. LEFT: # of nodules measured on left: 0 ISTHMUS: # of nodules measured in the isthmus: 0 Bilateral neck scanned, no evidence of lymphadenopathy. IMPRESSION: Nonenlarged thyroid gland with tiny right thyroid 2 mm cystic nodule. [facility], , 04/13/2024 1:40 PM
== END | disposition home or self-care (01) ==
LOC: RADUSWWP 13:13
PROVIDERS: ATTEND Family Medicine
DX: E04.2 Nontoxic multinodular goiter (principal)
CPT/HCPCS: 76536

== ENCOUNTER → 2024-05-20 | Outpatient (CLI) | payer MEDICAID ==
--- NOTE | 2024-05-20 17:30 | MM ---
Reason for Exam: Screening (asymptomatic). Last screening mammogram was performed 12 month(s) ago. Patient History: Menarche at age 14. First Full-Term at age 23. Right ovary removed at age 30. Postmenopausal. Maternal aunt had breast cancer. Risk Values: Anabella 5 year model risk: 1.4%. NCI Lifetime model risk: 6.2%. Prior Study Comparison: 09/25/2020 Bilateral Screening Mammogram, [facility]. 12/10/2021 Bilateral MG 3D screening mammo w/cad, [facility]. 05/20/2023 Bilateral MG 3D screening mammo w/cad, [facility]. Tissue Density: There are scattered areas of fibroglandular density. Findings: Analyzed By CAD. There is no suspicious group of microcalcifications or new suspicious mass in either breast. Overall Assessment: Negative, BI-RAD 1 Management: Screening Mammogram of both breasts in 1 year. . Patient should continue monthly self-breast exams. A clinical breast exam by your physician is recommended on an annual basis. This exam should not preclude additional follow-up of suspicious palpable abnormalities. Note on Anabella scores and lifetime risk: 1. A Anabella score greater than 3% is considered moderate risk. If this is the case, consider specialist referral to assess eligibility for a risk reducing agent. 2. If overall lifetime risk for the development of breast cancer is 20% or higher, the patient may qualify for future screening with alternating mammogram and breast MRI. [facility], , 05/20/2024 5:27 PM. Electronically signed and approved by: Tamela Nunez M.D. Radiologist
== END | disposition home or self-care (01) ==
LOC: RADMAMWWP 14:06
PROVIDERS: ATTEND Family Medicine
DX: Z12.31 Encounter for screening mammogram for malignant neoplasm of breast (principal); R92.323 Mammographic fibroglandular density, bilateral breasts; Z78.0 Asymptomatic menopausal state; Z80.3 Family history of malignant neoplasm of breast
CPT/HCPCS: 77063; 77067